=== PATIENT | female | born 1960 | race Caucasian/White ===

== ENCOUNTER 2022-05-26 14:58 | Outpatient (CLI) | payer OTHER, SELFPAY ==
--- NOTE | 2022-05-26 15:20 | CRLHL7_ITS ---
For Patients: As a result of the Cures Act, medical imaging exams and procedure reports are released immediately into your electronic medical record. You may view this report before your referring provider. If you have questions, please contact your health care provider. BILATERAL DIGITAL SCREENING MAMMOGRAM WITH TOMOSYNTHESIS AND COMPUTER-AIDED DETECTION CLINICAL HISTORY: Routine screening exam. COMPARISON: 05/23/2021, 05/22/2020, 05/19/2019, 05/18/2018. TECHNIQUE: Digital mammogram in CC and MLO projections including computer-aided detection (CAD). Tomosynthesis utilized. BREAST COMPOSITION: The breasts are heterogeneously dense, which may obscure small masses. FINDINGS: RIGHT Breast: No suspicious findings. LEFT Breast: Focal nodular density within the medial LEFT breast, posterior depth, 6 cm from the nipple. IMPRESSION: LEFT breast asymmetry/mass. RECOMMENDATIONS: Additional mammographic views of the LEFT breast including 3D spot compression CC/MLO. LEFT breast ultrasound may also be required. The [facility] will contact the patient for follow-up. BI-RADS Category 0: Incomplete: Need additional Imaging Evaluation and/or Prior Mammograms for Comparison A lay language report of this examination will be provided to the patient. Dictated by Rohit Obregon MD @ 05/27/2022 10:10:13 AM jj/Dictated by: Rohit Obregon MD @ 05/27/2022 10:10:00 AM (Electronically Signed)
== END 2022-05-26 14:59 | disposition home or self-care (01) ==
LOC: MAMMO 14:59
PROVIDERS: PCP Family Medicine; Visit Provider Family Medicine
DX: Z12.31 Encounter for screening mammogram for malignant neoplasm of breast (principal); N63.20 Unspecified lump in the left breast, unspecified quadrant
CPT/HCPCS: 77063; 77067

== ENCOUNTER 2022-05-29 09:31 | Outpatient (CLI) | payer OTHER, SELFPAY ==
--- NOTE | 2022-05-29 09:45 | CRLHL7_ITS ---
For Patients: As a result of the Cures Act, medical imaging exams and procedure reports are released immediately into your electronic medical record. You may view this report before your referring provider. If you have questions, please contact your health care provider. DIGITAL DIAGNOSTIC LEFT MAMMMOGRAM USING TOMOSYNTHESIS AND COMPUTER-AIDED DETECTION LEFT BREAST ULTRASOUND CLINICAL HISTORY: LEFT breast mass/asymmetry. COMPARISON: 05/26/2022, 05/23/2021, 05/22/2020, 05/19/2019. TECHNIQUE: Digital LEFT mammogram in two projections. Tomosynthesis and CAD were utilized. Real-time ultrasound imaging of LEFT breast with imaging documentation. Scanning was performed by both the technologist and the radiologist. BREAST COMPOSITION: There are areas of scattered fibroglandular density. FINDINGS: 3D spot compression CC and 3D spot compression MLO mammogram submitted. Persistent nodular density within the upper outer quadrant LEFT breast 6 cm from the nipple. No architectural distortion or suspicious calcifications. Targeted LEFT breast ultrasound performed in the upper outer quadrant. In this location at posterior depth there is a benign intramammary lymph node with circumscribed hypoechoic morphology measuring 3 x 3 x 6 millimeters at 11 o`clock 6 cm from the nipple. IMPRESSION: Benign intramammary lymph node LEFT breast. No evidence of malignancy. RECOMMENDATIONS: Annual BILATERAL screening mammography. Results and recommendations discussed with the patient. BI-RADS Category 2: Benign A lay language report of this examination will be provided to the patient. Dictated by Rohit Obregon MD @ 05/29/2022 11:14:46 AM jj/Dictated by: Rohit Obregon MD @ 05/29/2022 11:14:00 AM (Electronically Signed)
--- NOTE | 2022-05-29 10:15 | CRLHL7_ITS ---
For Patients: As a result of the Cures Act, medical imaging exams and procedure reports are released immediately into your electronic medical record. You may view this report before your referring provider. If you have questions, please contact your health care provider. PLEASE SEE DIGITAL DIAGNOSTIC LEFT MAMMOGRAM PERFORMED SAME DAY CRL:chana zayas/Dictated by: Rohit Obregon MD @ 05/29/2022 11:15:00 AM (Electronically Signed)
== END 2022-05-29 09:32 | disposition home or self-care (01) ==
LOC: MAMMO 09:32
PROVIDERS: PCP Family Medicine; Visit Provider Family Medicine
DX: N63.20 Unspecified lump in the left breast, unspecified quadrant (principal); R92.8 Other abnormal and inconclusive findings on diagnostic imaging of breast
CPT/HCPCS: 76642; 77065; G0279

== ENCOUNTER 2023-04-16 07:41 | Outpatient (CLI) | payer OTHER, SELFPAY | END 2023-04-16 07:42 | disposition home or self-care (01) | LOC: NFLDREF 12:07 | PROVIDERS: PCP Family Medicine; Referring Provider Family Medicine; Visit Provider Family Medicine | DX: D72.819 Decreased white blood cell count, unspecified (principal); E78.5 Hyperlipidemia, unspecified; I10 Essential (primary) hypertension; R73.9 Hyperglycemia, unspecified | CPT/HCPCS: 80053; 80061 ==

== ENCOUNTER 2023-06-10 09:54 | Outpatient (CLI) | payer OTHER, SELFPAY ==
--- NOTE | 2023-06-10 10:15 | CRLHL7_ITS ---
For Patients: As a result of the Century Cures Act, medical imaging exams and procedure reports are released immediately into your electronic medical record. You may view this report before your referring provider. If you have questions, please contact your health care provider. BILATERAL SCREENING MAMMOGRAM WITH COMPUTER-AIDED DETECTION AND TOMOSYNTHESIS TECHNIQUE: CC and MLO views were obtained. These mammographic images have been obtained using full-field digital technique. These mammographic images were interpreted with the benefit of computer-aided detection. Breast Tomosynthesis was used in this interpretation. COMPARISON FILM: 05/26/22, 05/23/21, 05/22/20. FINDINGS: The breasts are heterogeneously dense, which may obscure small masses IMPRESSION: There is no radiographic evidence for malignancy. ASSESSMENT: BI-RADS Category 2: Benign RECOMMENDATION: Routine screening mammogram in 1 year. A lay language report of this examination will be provided to the patient. Rohit Obregon M.D. Diagnostic Radiologist [email or web address] DANO/Dictated by: Rohit Obregon MD @ 06/11/2023 9:00:00 AM (Electronically Signed)
== END 2023-06-10 09:55 | disposition home or self-care (01) ==
LOC: MAMMO 09:55
PROVIDERS: PCP Family Medicine; Visit Provider Family Medicine
DX: Z12.31 Encounter for screening mammogram for malignant neoplasm of breast (principal); R92.2 Inconclusive mammogram
CPT/HCPCS: 77063; 77067

== ENCOUNTER 2024-05-05 07:35 | Outpatient (CLI) | payer OTHER, SELFPAY | END 2024-05-05 07:36 | disposition home or self-care (01) | LOC: NFLDREF 14:35 | PROVIDERS: PCP Family Medicine; Referring Provider Family Medicine; Visit Provider Family Medicine | DX: I10 Essential (primary) hypertension (principal); E78.5 Hyperlipidemia, unspecified; R73.01 Impaired fasting glucose | CPT/HCPCS: 80053; 80061 ==

== ENCOUNTER 2024-05-16 09:42 | Outpatient (CLI) | payer OTHER, SELFPAY ==
--- OUTSIDE RECORDS SUMMARY | 2024-05-16 09:44 | XMS_ITS | Encounter Summary ---
Author Organization [facility] Address [address] [place] [address] Care Team Providers Care Molding Machine Operator Name Role Phone Needs Pcp, Assignment Primary Care Provider Encounter Details Date Type Department Care Team (Latest Contact Info) Description 10/23/1997 Orders Only Kenny Mccullough Social History Tobacco Use Types Packs/Day Years Used Date Smoking Tobacco: Never Assessed Sex and Gender Information Value Date Recorded Sex Assigned at Not on file Gender Identity Not on file Sexual Orientation Not on file documented as of this encounter Plan of Treatment Not on file documented as of this encounter Visit Diagnoses Not on filedocumented in this encounter Care Teams Molding Machine Operator Relationship Specialty Start Date End Date Needs Pcp, Ernie [place], [place] [id number] PCP - General 07/18/22 documented as of this encounter
--- OUTSIDE RECORDS SUMMARY | 2024-05-16 09:44 | XMS_ITS | Encounter Summary ---
Author Organization [facility] Address [address] [place] [address] Care Team Providers Care Establishment Guide Name Role Phone Needs Pcp, Assignment Primary Care Provider Encounter Details Date Type Department Care Team (Latest Contact Info) Description 11/22/1998 Orders Only Anai Marrero MD Social History Tobacco Use Types Packs/Day Years Used Date Smoking Tobacco: Never Assessed Sex and Gender Information Value Date Recorded Sex Assigned at Not on file Gender Identity Not on file Sexual Orientation Not on file documented as of this encounter Plan of Treatment Not on file documented as of this encounter Visit Diagnoses Not on filedocumented in this encounter Care Teams Establishment Guide Relationship Specialty Start Date End Date Needs Pcp, [place] [address] PCP - General 07/18/22 documented as of this encounter
--- OUTSIDE RECORDS SUMMARY | 2024-05-16 09:44 | XMS_ITS | Clinical Summary ---
Author Organization [facility] Address [address], [place] [address] Care Team Providers Care Contracting Specialist Name Role Phone Needs Pcp, Assignment Primary Care Provider Source Comments You are receiving this document as you are listed as the primary care provider,follow-up provider, or the patient has been referred to you for consultation.This is in compliance with the Medicare and[facility] Hospital[facility] EHR Incentive Program,which states Providers who transition their patient to another setting of careor provider of care or refers their patient to another provider of care shouldprovide summary care record for each transition of care or referral. [facility] Allerg[facility] Active Allergy Reactions Criticality Noted Date Comments Other Hives High 11/26/2018 Chlorpheniramine-phenylpropan Medications Medication Sig Dispensed Refills Start Date End Date Status VITAMIN E 400UNIT ORAL CAPS 400 I.U. DAILY 0 01/29/2005 Active loratadine (AKA CLARITIN) 10 MG tablet Take 10 mg by mouth daily. Active ALBUterol sulfate hfa (PROAIR HFA) 108 (90 BASE) MCG/ACT inhaler Inhale 2 Puffs by mouth every 4 hours as needed for Wheezing. 8.5 g 3 03/05/2015 Active fluticasone (FLONASE) 50 MCG/ACT nasal solution Apply or instill 2 Sprays into both nostrils daily. 16 g 6 03/05/2015 Active lisinopril-hydrochlor othiazide (AKA PRINZIDE;ZESTORETIC) 10-12.5 MG tablet Take 1 Tab by mouth daily. 90 Tab 3 03/05/2015 Active acyclovir (ZOVIRAX) 400 MG tablet TAKE ONE TABLET BY MOUTH ONE TIME DAILY 93 Tab 0 09/24/2016 Active Active Problems Problem Noted Date Diagnosed Date Screening for malignant neoplasm of cervix 03/09 Overview: 2008 NILM 2011 NILM 2014 ASCUS, HPV negative Plan: Co-test 02/2018 [facility] HTN (hypertension) 10/11/2008 Dyslipidemia 02/29/2008 Rhinitis 02/29/2008 Resolved Problems Problem Noted Date Diagnosed Date Resolved Date Elevated blood pressure 09/18/200809/25 Impaired fasting glucose 02/29/2008 Immunizations Name Administration Dates Next Due Flu Vac (3+ yrs) 08/24/2010, 8,09/02/2006,2004 Influenza Vaccine (3+years) ([facility]) 09/06/2007 Influenza, Unspecified Formulation 08/09/2015 Td 02/16/1997 Tdap 03/03/2007 Varicella 07/11/1997(Deferred: Immune by Akash lara) Family History Medical History Relation Name Comments Cancer, Colon Mother Cancer, Other Mother LIVER Hypertension Mother brothers Other Mother COLON POLYPS Hyperlipidemia Brother 3 Cerebrovascular Disease Maternal Grandmother Cerebrovascular Disease Paternal Grandfather Coronary Artery Disease Paternal Grandfather Diabetes, Type II Paternal Grandfather Cerebrovascular Disease Paternal Grandmother Thyroid Disorder Sister 3 BOTH SISTER S AND AUNT Migraines Sister 4 brothers Relation Name Status Comments Father (Age 51) LUNG PROBL EMS/PNEUMONIA/POSSIBLE WORK EXPOSURES Mother (Age 72) LIVER CANC ER Brother 1 Alive Brother 2 Alive Brother 3 Maternal Grandmother Paternal Grandfather Paternal Grandmother Sister 1 Alive Sister 2 Alive Sister 3 Sister 4 Son 1 Alive Son 2 Alive Son 3 Alive Social History Tobacco Use Types Packs/Day Years Used Date Smoking Tobacco: Never Smokeless Tobacco: Never Alcohol Use Standard Drinks/Week Comments No 0 (1 standard drink = 0.6 oz pur e alcohol) RARE Sex and Gender Information Value Date Recorded Sex Assigned at Not on file Gender Identity Not on file Sexual Orientation Not on file Last Filed Vital Signs Vital Sign Reading Time Taken Comments Blood Pressure 158/99 11/26/2018 10:40 AM TOBACCO SAMPLER Pulse 88 11/26/2018 10:40 AM TOBACCO SAMPLER Temperature 37.5 ??C (99.5 ??F) 11/26/2018 9:53 AM CS T Respiratory Rate 16 03/13/2014 8:04 AM CDT Oxygen Saturation 98% 11/26/2018 9:53 AM TOBACCO SAMPLER Inhaled Oxygen Concentration - - Weight 87.4 kg (192 lb 9.6 oz) 11/26/2018 9:53 A M TOBACCO SAMPLER Height 170.2 cm (5' 7) 11/26/2018 9:53 AM TOBACCO SAMPLER Body Mass Index 30.17 11/26/2018 9:53 AM TOBACCO SAMPLER Plan of Treatment Health Maintenance Due Date Last Done Comments Hep C Screening (Preventive Services) 1960 HIV Screening (Preventive Services) 1976 Zoster/Shingles (1 of 2) 2010 Cervical Cancer Screening Due 03/06/2015 03/05/2015, 03/05/2012, 03/05/2012, Additional history exists Adult Preventive Visit 03/05/2016 , 03/13/2014, 03/15/2013, Additional history exists Colonoscopy 05/06/2016 05/06/2011, 04/25, 05/06/2011 (Historical Completion) Cholesterol 03/05/2020 03/05/2015, 02/23, 03/15/2013, Additional history exists Mammogram 09/16/2020 09/16/2019 (Comp leted), 05/07/2015, 05/02/2014, Additional history exists COVID-19 Vaccine (2022- season) 2023 02/08/2021, 01/11/2021 Influenza (#1) 2024 07/16/2020, 07/26, 08/24/2010, Additional history exists DTaP/Tdap/Td (3 - Tdap) 03/18/2027 03/18/20 17, 03/03/2007, 02/16/1997 HepA Aged Out No longer eligi ble based on patient's age to complete this topic HepB Aged Out No longer eligi ble based on patient's age to complete this topic Hib Aged Out No longer eligi ble based on patient's age to complete this topic IPV (Polio) Aged Out No longer eligi ble based on patient's age to complete this topic MCV4 Aged Out No longer eligi ble based on patient's age to complete this topic Pneumococcal Aged Out No longer eligi ble based on patient's age to complete this topic Procedures Procedure Name Priority Date/Time Associated Diagnosis Comments MM MAMMOGRAM SCREENING BILAT W CAD Routine 05/07/2015 8:52 AM CDT PAP TEST, ROUTINE Routine 03/05/2015 8:4 2 AM CDT Screening For Malignant Neoplasm Of The Cervix LIPID PANEL & DIRECT LDL (IF NEEDED) Routine 03/05/2015 8:28 AM CDT Routine adult health maintenance COLONOSCOPY S 05/06/2011 12:00 AM CDT from Last 3 Months or Most Recently Relevant to Health Maintenance Results * MAMMOGRAM SCREENING BILATERAL (05/07/2015 8:52 AM CDT) Anatomical Region Laterality Modality Breast Bilateral Mammography 05/07/2015 8:52 AM CDT Narrative 05/07/2015 3:21 PM CDT MAMMOGRAM SCREENING W/CAD BILAT 05/07/2015 8:52 AM INDICATION: Screening. COMPARISON: Priors back to 04/27/2013 FINDINGS: Bilateral full-field digital screening mammograms performed. The breast tissue is heterogeneously dense, which may lower the sensitivity of mammography. Images evaluated with the assistance of CAD. ??No suspicious finding of the right breast. There is a 7 mm partially visualized asymmetry of the central, posterior left breast seen on the cc view for which further evaluation is suggested with spot compression views and ultrasound if indicated. ACR BI-RADS Category 0: Incomplete; Needs Additional Imaging Evaluation and/or Prior Mammograms for Comparison. We will contact this patient directly to arrange for followup. Procedure Note Shi Palomo MD - 05/07/2015 MAMMOGRAM SCREENING W/CAD BILAT 05/07/2015 8:52 AM INDICATION: Screening. COMPARISON: Priors back to 04/27/2013 FINDINGS: Bilateral full-field digital screening mammograms performed. The breast tissue is heterogeneously dense, which may lower the sensitivity of mammography. Images evaluated with the assistance of CAD. No suspicious finding of the right breast. There is a 7 mm partially visualizedasymmetry of the central, posterior left breast seen on the cc view for which further evaluation is suggested with spot compression views and ultrasound if indicated. ACR BI-RADS Category 0: Incomplete; Needs Additional Imaging Evaluation and/or Prior Mammograms for Comparison. We will contact this patient directly to arrange for followup. Vernell Montejo MD RAD JIM * PAP TEST, ROUTINE (03/05/2015 8:42 AM CDT) Cytology, Pap (NOTE) Geologic Technician Cytology Report Patient Name: ELISA SORIA Taken: 03/05/2015 Received: 03/05/2015 Reported: 03/08/2015 Physician(s): VERNELL MONTEJO ([id number]) ?Source of Specimen Pap Test, Routine Cervical/Endocer vical: ?Specimen Adequacy ?Satisfactory for evaluation. ??Atrophic specimen; endocervical component cannot be determined. ? Final Cytologic Interpretation/R esult EPITHELIAL CELL ABNORMALITIES Atypical squamous cells, undetermined significance (ASC-US). ?? Electronicall y Signed Out By ? Nayely Brito MD ??([id number] ) Carol Leung, CT (ASCP) ? Pap Smear History Date of Last Menstrual Period: 11/09/2007 ?? Microscopic Description Microscopic examination is performed. [facility] Department of Pathology [address] [place] [address] ??[id number] [facility] 03/05/2015 8:42 AM CDT 03/05/2015 3:37 PM CDT Vernell Montejo MD LAB_1 [facility] [phone] * (ABNORMAL) LIPID PANEL AND DIRECT LDL(IF NEEDED) (03/05/2015 8:28 AM CDT) Hours Fasting 14 hours [facility] Cholesterol 200(H) 0 - 199 mg/dl [facility] Triglyceride 190(H) 0 - 149 mg/dl [facility] HDL 26(L) >40 mg/dl [facility] LDL, Calc. 136(H) 0 - 129 mg/dl [facility] Non HDL Chol, Calc 174 mg/dl [facility] 03/05/2015 8:28 AM CDT 03/05/2015 8:30 AM CDT Narrative [facility] - 03/05/2015 1:21 PM CDT Performed at [facility], [address] [place] [address] ??[id number] Vernell Montejo MD LAB_1 [facility] [phone] * COLONOSCOPY S (05/06/2011 12:00 AM CDT) 05/06/2011 Narrative [facility], Provider - 05/06/2011 12:00 AM CDT Niharika Castillo MD DUMMY/OTHER/AR from Last 3 Months or Most Recently Relevant to Health Maintenance Care Teams Contracting Specialist Relationship Specialty Start Date End Date Needs Pcp, [place] [address] PCP - General 07/18/22
--- OUTSIDE RECORDS SUMMARY | 2024-05-16 09:44 | XMS_ITS | Encounter Summary ---
Author Organization [employer] [facility] Address [address] [place] [address] Care Team Providers Care Paper Tube Machine Operator Name Role Phone Needs Pcp, Assignment Primary Care Provider Encounter Details Date Type Department Care Team (Late st Contact Info) Description 09/24/2016 Refill Order [facility] [address] [place], [place] [phone] [place] [address] [place] [address] Social History Tobacco Use Types Packs/Day Years [...] documented as of this encounter Visit Diagnoses Diagnosis Encounter for long-term (current) use of medications- Primary Encounter for long-term (current) use of other medications documented in this encounter Care Teams Paper Tube Machine Operator Relationship Specialty Start Date End Date Needs Pcp, Ernie ORTIZ [place], [place] [phone] PCP - General 07/18/22 documented as of this encounter
--- OUTSIDE RECORDS SUMMARY | 2024-05-16 09:44 | XMS_ITS | Encounter Summary ---
Author Organization [facility] Address [address] [place] [address] Care Team Providers Care Nurse Practical Name Role Phone Needs Pcp, Assignment Primary Care Provider Encounter Details Date Type Department Care Team (Latest Contact Info) Description 11/11/1997 Orders Only Larry Tate Social History Tobacco Use Types Packs/Day Years Used Date Smoking Tobacco: Never Assessed Sex and Gender Information Value Date Recorded Sex Assigned at Not on file Gender Identity Not on file Sexual Orientation Not on file documented as of this encounter Plan of Treatment Not on file documented as of this encounter Visit Diagnoses Not on filedocumented in this encounter Care Teams Nurse Practical Relationship Specialty Start Date End Date Needs Pcp, [place] [address] PCP - General 07/18/22 documented as of this encounter
--- OUTSIDE RECORDS SUMMARY | 2024-05-16 09:44 | XMS_ITS | Encounter Summary ---
Author Organization [facility] Address [address] [place] [address] Care Team Providers Care Post Exchange Manager Name Role Phone Needs Pcp, Assignment Primary Care Provider Encounter Details Date Type Department Care Team (Latest Contact Info) Description 05/28/1999 Orders Only Anai Marrero MD Social History [...] on filedocumented in this encounter Care Teams Post Exchange Manager Relationship Specialty Start Date End Date Needs Pcp, [place] [address] PCP - General 07/18/22 documented as of this encounter
--- OUTSIDE RECORDS SUMMARY | 2024-05-16 09:44 | XMS_ITS | Encounter Summary ---
Author Organization [facility] Address [address] [place] [address] Care Team Providers Care Philosophy Specialist Name Role Phone Needs Pcp, Assignment Primary Care Provider Encounter Details Date Type Department Care Team (Latest Contact Info) Description 07/10/1997 Orders Only Deric, David Whitmore MD [address] [place], [place] [phone] Social History Tobacco Use Types Packs/Day Years Used Date Smoking Tobacco: Never Assessed Sex and Gender Information Value Date Recorded Sex Assigned at Not on file Gender Identity Not on file Sexual Orientation Not on file documented as of this encounter Plan of Treatment Not on file documented as of this encounter Visit Diagnoses Not on filedocumented in this encounter Care Teams Philosophy Specialist Relationship Specialty Start Date End Date Needs Pcp, [place] [address] PCP - General 07/18/22 documented as of this encounter
--- OUTSIDE RECORDS SUMMARY | 2024-05-16 09:44 | XMS_ITS | Encounter Summary ---
Author Organization [facility] [employer] Address [address] [place] [address] Care Team Providers Care Earth Observations Chief Scientist Name Role Phone Needs Pcp, Assignment Primary Care Provider Encounter Details Date Type Department Care Team (Latest Contact Info) Description 06/26/1998 [place] [address] [place], [place] [phone] Social History Tobacco Use Types Packs/Day Years Used Date Smoking Tobacco: Never Assessed Sex and Gender Information Value Date Recorded Sex Assigned at Not on file Gender Identity Not on file Sexual Orientation Not on file documented as of this encounter Plan of Treatment Not on file documented as of this encounter Visit Diagnoses Not on filedocumented in this encounter Care Teams Earth Observations Chief Scientist Relationship Specialty Start Date End Date Needs Pcp, [place] [address] PCP - General 07/18/22 documented as of this encounter
--- OUTSIDE RECORDS SUMMARY | 2024-05-16 09:44 | XMS_ITS | Encounter Summary ---
Author Organization [facility] Address [address] [place] [address] Care Team Providers Care Client Services Vice President Name Role Phone Needs Pcp, Assignment Primary Care Provider Encounter Details Date Type Department Care Team (Latest Contact Info) Description 12/24/1996 Orders Only Neftali Olivo MD [address] [place], [place] [phone] Social History Tobacco Use Types Packs/Day Years Used Date Smoking Tobacco: Never Assessed Sex and Gender Information Value Date Recorded Sex Assigned at Not on file Gender Identity Not on file Sexual Orientation Not on file documented as of this encounter Plan of Treatment Not on file documented as of this encounter Visit Diagnoses Not on filedocumented in this encounter Care Teams Client Services Vice President Relationship Specialty Start Date End Date Needs Pcp, Ernie ORTIZ [place], [place] [address] PCP - General 07/18/22 documented as of this encounter
--- OUTSIDE RECORDS SUMMARY | 2024-05-16 09:44 | XMS_ITS | Encounter Summary ---
Author Organization [facility] Address [address] [place] [address] Care Team Providers Care Hydroelectric Plant Mechanical Engineer Name Role Phone Needs Pcp, Assignment Primary Care Provider Encounter Details Date Type Department Care Team (Latest Contact Info) Description 05/17/1996 Orders Only Javi Bagley MD [address] [place], [place] [phone] Social History Tobacco Use Types Packs/Day Years Used Date Smoking Tobacco: Never Assessed Sex and Gender Information Value Date Recorded Sex Assigned at Not on file Gender Identity Not on file Sexual Orientation Not on file documented as of this encounter Plan of Treatment Not on file documented as of this encounter Visit Diagnoses Not on filedocumented in this encounter Care Teams Hydroelectric Plant Mechanical Engineer Relationship Specialty Start Date End Date Needs Pcp, [place] [address] PCP - General 07/18/22 documented as of this encounter
--- OUTSIDE RECORDS SUMMARY | 2024-05-16 09:44 | XMS_ITS | Encounter Summary ---
Author Organization [facility] Address [address] [place] [address] Care Team Providers Care Oracle Soa Architect Name Role Phone Needs Pcp, Assignment Primary Care Provider Encounter Details Date Type Department Care Team (Latest Contact Info) Description 06/21/1996 Orders Only Javi Bagley MD [address] [place], [place] [phone] Social History Tobacco Use Types Packs/Day Years Used Date Smoking Tobacco: Never Assessed Sex and Gender Information Value Date Recorded Sex Assigned at Not on file Gender Identity Not on file Sexual Orientation Not on file documented as of this encounter Plan of Treatment Not on file documented as of this encounter Visit Diagnoses Not on filedocumented in this encounter Care Teams Oracle Soa Architect Relationship Specialty Start Date End Date Needs Pcp, [place] [address] PCP - General 07/18/22 documented as of this encounter
--- OUTSIDE RECORDS SUMMARY | 2024-05-16 09:44 | XMS_ITS | Encounter Summary ---
Author Organization [facility] Address [address] [place] [address] Care Team Providers Care Nursery Rn Name Role Phone Needs Pcp, Assignment Primary Care Provider Encounter Details Date Type Department Care Team (Latest Contact Info) Description 01/10/2000 Orders Only Anai Marrero MD Social History [...] on filedocumented in this encounter Care Teams Nursery Rn Relationship Specialty Start Date End Date Needs Pcp, [place] [address] PCP - General 07/18/22 documented as of this encounter
--- OUTSIDE RECORDS SUMMARY | 2024-05-16 09:45 | XMS_ITS | Encounter Summary ---
Author Organization [employer] Address [address] [place] [address] Care Team Providers Care Api Architect Name Role Phone Needs Pcp, Assignment Primary Care Provider Encounter Details Date Type Department Care Team (Latest Contact Info) Description 09/04/1995 Orders Only Javi Bagley MD [address] [place], [place] [phone] Social History Tobacco Use Types Packs/Day Years Used Date Smoking Tobacco: Never Assessed Sex and Gender Information Value Date Recorded Sex Assigned at Not on file Gender Identity Not on file Sexual Orientation Not on file documented as of this encounter Plan of Treatment Not on file documented as of this encounter Visit Diagnoses Not on filedocumented in this encounter Care Teams Api Architect Relationship Specialty Start Date End Date Needs Pcp, [place] [address] PCP - General 07/18/22 documented as of this encounter
--- OUTSIDE RECORDS SUMMARY | 2024-05-16 09:45 | XMS_ITS | Encounter Summary ---
Author Organization [facility] Address [address] [place] [address] Care Team Providers Care Artists' Model Name Role Phone Needs Pcp, Assignment Primary Care Provider Encounter Details Date Type Department Care Team (Latest Contact Info) Description 11/14/1994 Orders Only Javi Bagley MD [address] [place], [place] [phone] Social History Tobacco Use Types Packs/Day Years Used Date Smoking Tobacco: Never Assessed Sex and Gender Information Value Date Recorded Sex Assigned at Not on file Gender Identity Not on file Sexual Orientation Not on file documented as of this encounter Plan of Treatment Not on file documented as of this encounter Visit Diagnoses Not on filedocumented in this encounter Care Teams Artists' Model Relationship Specialty Start Date End Date Needs Pcp, [place] [address] PCP - General 07/18/22 documented as of this encounter
--- OUTSIDE RECORDS SUMMARY | 2024-05-16 09:45 | XMS_ITS | Encounter Summary ---
Author Organization [employer] Address [address] [place] [address] Care Team Providers Care Clarity Specialists Name Role Phone Needs Pcp, Assignment Primary Care Provider [phone] Encounter Details Date Type Department Care Team (Latest Contact Info) Description 11/07/1994 Orders Only Tyson Villafana Social History Tobacco Use Types Packs/Day Years Used Date Smoking Tobacco: Never Assessed Sex and Gender Information Value Date Recorded Sex Assigned at Not on file Gender Identity Not on file Sexual Orientation Not on file documented as of this encounter Plan of Treatment Not on file documented as of this encounter Visit Diagnoses Not on filedocumented in this encounter Care Teams Clarity Specialists Relationship Specialty Start Date End Date Needs Pcp, [place] [address] PCP - General 07/18/22 documented as of this encounter
--- OUTSIDE RECORDS SUMMARY | 2024-05-16 09:45 | XMS_ITS | Clinical Summary ---
Author Organization [employer] Address [place], [place] [address] Care Team Providers Care Plumber'S Helper Name Role Phone Pcp, No Primary Care Provider Unavailabl e Allergies Active Allergy Reactions Criticality Noted Date Comments Chlorpheniramine-Phenylpropan Hives 2016 Eyes itch Medications Medication Sig Dispensed Refills Start Date End Date Status lisinopril (PRINIVIL; ZESTRIL) 10 mg tablet Take 1 tablet by mouth once daily. 0 07/08/2017 Active Social History Tobacco Use Types Packs/Day Years Used Date Smoking Tobacco: Never Smokeless Tobacco: Never Sex and Gender Information Value Date Recorded Sex Assigned at Not on file Gender Identity Not on file Sexual Orientation Not on file Obstetrics History Last Filed Vital Signs Vital Sign Reading Time Taken Comments Blood Pressure 130/79 07/08/2017 3:24 PM CDT Pulse 94 07/08/2017 3:24 PM CDT Temperature - - Respiratory Rate - - Oxygen Saturation 98% 07/08/2017 3:24 PM CDT Inhaled Oxygen Concentration - - Weight - - Height - - Body Mass Index - - Plan of Treatment Health Maintenance Due Date Last Done Comments Tdap 1971 Depression screening for age 12+ 1972 HIV for age 15-65 1975 BMI (ht and wt on same day) for age 18+ 1978 Hepatitis C screening for age 18-79 1978 Tetanus booster 1980 Colonoscopy through age 75 2005 Lipids for age 45-75 2005 Mammogram for age 45-75 2005 Zoster (shingles) series for age 50+ (1 of 2) 2010 COVID-19 vaccine series (2022-24 season) 2023 Influenza for age 50-64 06/26/2024 Pap test for age 21-65 04/23/2026 , 04/23/2023, 03/12/2018, Additional history exists Pneumococcal series for age 6-64 Aged Out No longer eligible based on patient's age to complete this topic Procedures Procedure Name Priority Date/Time Associated Diagnosis Comments HPV THIN PREP Routine 04/23/2023 7:55 AM CDT from Last 3 Months or Most Recently Relevant to Health Maintenance Results * HPV HIGH RISK (04/23/2023 7:55 AM CDT) TYPE 16 Negative Negative 04/30/2023 5:17 PM CDT [facility] TYPE 18 Negative Negative 04/30/2023 5:17 PM CDT [facility] OTHER HIGH RISK TYPES Negative Negative 04/30/2023 5:17 PM CDT [facility] Other (Cervical/Vagina l) 04/23/2023 7:55 AM CDT 04/27/2023 12:00 PM CDT Narrative [facility] - 04/30/2023 5:17 PM CDT HPV types 16, 18, 31, 33, 35, 39, 45, 51, 52, 56, 58, 59, 66 and 68 DNA were undetectable or below the pre-set threshold. Methodology: Cornelia Jaiden 4800 HPV Test Sola Allen MD MICROBIOLOGY [facility] [address] [place] [address], [place] from Last 3 Months or Most Recently Relevant to Health Maintenance Care Teams Plumber'S Helper Relationship Specialty Start Date End Date Pcp, No . PCP - General 06/30/17
--- OUTSIDE RECORDS SUMMARY | 2024-05-16 09:45 | XMS_ITS | Encounter Summary ---
Author Organization [employer] Address [address] [place] [address] Care Team Providers Care Inspector Repairer Sandstone Name Role Phone Needs Pcp, Assignment Primary Care Provider Encounter Details Date Type Department Care Team (Latest Contact Info) Description 04/30/1995 Orders Only Javi Bagley MD [address] [place], [place] [phone] Social History Tobacco Use Types Packs/Day Years Used Date Smoking Tobacco: Never Assessed Sex and Gender Information Value Date Recorded Sex Assigned at Not on file Gender Identity Not on file Sexual Orientation Not on file documented as of this encounter Plan of Treatment Not on file documented as of this encounter Visit Diagnoses Not on filedocumented in this encounter Care Teams Inspector Repairer Sandstone Relationship Specialty Start Date End Date Needs Pcp, [place] [address] PCP - General 07/18/22 documented as of this encounter
--- OUTSIDE RECORDS SUMMARY | 2024-05-16 09:45 | XMS_ITS | Encounter Summary ---
Author Organization [employer] Address [address] [place] [address] Care Team Providers Care Drapery Cutter Machine Name Role Phone Needs Pcp, Assignment Primary Care Provider [phone] Encounter Details Date Type Department Care Team (Latest Contact Info) Description 01/08/1995 Orders Only Javi Bagley MD [address] [place], [place] [phone] Social History Tobacco Use Types Packs/Day Years Used Date Smoking Tobacco: Never Assessed Sex and Gender Information Value Date Recorded Sex Assigned at Not on file Gender Identity Not on file Sexual Orientation Not on file documented as of this encounter Plan of Treatment Not on file documented as of this encounter Visit Diagnoses Not on filedocumented in this encounter Care Teams Drapery Cutter Machine Relationship Specialty Start Date End Date Needs Pcp, [place] [address] PCP - General 07/18/22 documented as of this encounter
--- OUTSIDE RECORDS SUMMARY | 2024-05-16 09:45 | XMS_ITS | Encounter Summary ---
Author Organization [employer] Address [address] [place] [address] Care Team Providers Care Electronic Development Technician Name Role Phone Needs Pcp, Assignment Primary Care Provider Encounter Details Date Type Department Care Team (Latest Contact Info) Description 05/28/1995 Orders Only Javi Bagley MD [address] [place], [place] [phone] Social History Tobacco Use Types Packs/Day Years Used Date Smoking Tobacco: Never Assessed Sex and Gender Information Value Date Recorded Sex Assigned at Not on file Gender Identity Not on file Sexual Orientation Not on file documented as of this encounter Plan of Treatment Not on file documented as of this encounter Visit Diagnoses Not on filedocumented in this encounter Care Teams Electronic Development Technician Relationship Specialty Start Date End Date Needs Pcp, [place] [address] PCP - General 07/18/22 documented as of this encounter
--- OUTSIDE RECORDS SUMMARY | 2024-05-16 09:45 | XMS_ITS | Encounter Summary ---
Author Organization [facility] Address [address] [place] [address] Care Team Providers Care Knowledge Management Advisor Name Role Phone Needs Pcp, Assignment Primary Care Provider Encounter Details Date Type Department Care Team (Latest Contact Info) Description 01/27/1996 Orders Only Janett Guzman MD [address] [facility] [address] [place], [place] [address] Social History Tobacco Use Types Packs/Day Years Used Date Smoking Tobacco: Never Assessed Sex and Gender Information Value Date Recorded Sex Assigned at Not on file Gender Identity Not on file Sexual Orientation Not on file documented as of this encounter Plan of Treatment Not on file documented as of this encounter Visit Diagnoses Not on filedocumented in this encounter Care Teams Knowledge Management Advisor Relationship Specialty Start Date End Date Needs Pcp, Assignment [facility] [place] [place] [address] PCP - General 07/18/22 documented as of this encounter
--- OUTSIDE RECORDS SUMMARY | 2024-05-16 09:45 | XMS_ITS | Encounter Summary ---
Author Organization [employer] Address [address] [place] [address] Care Team Providers Care Air Saw Operator Name Role Phone Needs Pcp, Assignment Primary Care Provider Encounter Details Date Type Department Care Team (Latest Contact Info) Description 12/03/1994 Orders Only Javi Bagley MD [address] [place], [place] [phone] Social History Tobacco Use Types Packs/Day Years Used Date Smoking Tobacco: Never Assessed Sex and Gender Information Value Date Recorded Sex Assigned at Not on file Gender Identity Not on file Sexual Orientation Not on file documented as of this encounter Plan of Treatment Not on file documented as of this encounter Visit Diagnoses Not on filedocumented in this encounter Care Teams Air Saw Operator Relationship Specialty Start Date End Date Needs Pcp, [place] [address] PCP - General 07/18/22 documented as of this encounter
--- OUTSIDE RECORDS SUMMARY | 2024-05-16 09:45 | XMS_ITS | Encounter Summary ---
Author Organization [employer] [facility] Address [address] [place] [address] Care Team Providers Care Ship Boss Name Role Phone Needs Pcp, Assignment Primary Care Provider [phone] Encounter Details Date Type Department Care Team (Latest Contact Info) Description 01/14/1996 Orders Only Larry West MD [address] [place], [place] [address] Social History Tobacco Use Types Packs/Day Years Used Date Smoking Tobacco: Never Assessed Sex and Gender Information Value Date Recorded Sex Assigned at Not on file Gender Identity Not on file Sexual Orientation Not on file documented as of this encounter Plan of Treatment Not on file documented as of this encounter Visit Diagnoses Not on filedocumented in this encounter Care Teams Ship Boss Relationship Specialty Start Date End Date Needs Pcp, Assignment ANGEL [place], [place] [address] PCP - General 07/18/22 documented as of this encounter
--- OUTSIDE RECORDS SUMMARY | 2024-05-16 09:45 | XMS_ITS | Encounter Summary ---
Author Organization [employer] Address [address] [place] [address] Care Team Providers Care Crown Buffer Name Role Phone Needs Pcp, Assignment Primary Care Provider Encounter Details Date Type Department Care Team (Latest Contact Info) Description 12/15/1994 Orders Only Nette Medeiros Social History Tobacco Use Types Packs/Day Years Used Date Smoking Tobacco: Never Assessed Sex and Gender Information Value Date Recorded Sex Assigned at Not on file Gender Identity Not on file Sexual Orientation Not on file documented as of this encounter Plan of Treatment Not on file documented as of this encounter Visit Diagnoses Not on filedocumented in this encounter Care Teams Crown Buffer Relationship Specialty Start Date End Date Needs Pcp, [place] [address] PCP - General 07/18/22 documented as of this encounter
--- NOTE | 2024-05-16 10:00 | CRLHL7_ITS ---
For Patients: As a result of the Century Cures Act, medical imaging exams and procedure reports are released immediately into your electronic medical record. You may view this report before your referring provider. If you have questions, please contact your health care provider. Indication: Follow-up thoracic aneurysm Technique: Noncontrast CT chest Please note that all CT scans at this facility use dose modulation, iterative reconstruction, and/or weight-based dosing when appropriate to reduce radiation dose to as low as reasonably achievable. Comparison: 04/23/2021 Findings: Fatty liver noted. Calcified stones in the gallbladder. Subcentimeter mediastinal lymph nodes are similar. No pleural or pericardial effusion. Mild rightward curvature thoracic spine no vertebral body compression fracture. Stable nodule in the right middle lobe measures 3.4 millimeters. No consolidation, edema or pneumothorax. Mild biapical pleural-parenchymal scarring. Ascending aorta measures 3.8 cm. Impression: Ascending thoracic aorta measures 3.8 cm. Stable 3.4 millimeter right middle lobe pulmonary nodule. Hepatic steatosis and cholelithiasis. Please note that all CT scans at this facility use dose modulation, iterative reconstruction, and/or weight-based dosing when appropriate to reduce radiation dose to as low as reasonably achievable. Dictated by Rohit Obregon MD @ 05/16/2024 12:12:38 PM (Electronically Signed)
== END 2024-05-16 09:43 | disposition home or self-care (01) ==
LOC: CT 09:43
PROVIDERS: PCP Family Medicine; Visit Provider Family Medicine
DX: I77.89 Other specified disorders of arteries and arterioles (principal); R91.1 Solitary pulmonary nodule; K76.0 Fatty (change of) liver, not elsewhere classified; K80.20 Calculus of gallbladder without cholecystitis without obstruction
CPT/HCPCS: 71250

== ENCOUNTER 2025-04-17 14:15 | Outpatient (CLI) | payer OTHER, SELFPAY ==
--- NOTE | 2025-04-17 14:40 | CRLHL7_ITS ---
For Patients: As a result of the Century Cures Act, medical imaging exams and procedure reports are released immediately into your electronic medical record. You may view this report before your referring provider. If you have questions, please contact your health care provider. INDICATION: BILATERAL SCREENING MAMMOGRAM, ASYMPTOMATIC 64 Y/O FEMALE COMPARISON: 06/10/2023, 05/26/2022, 05/23/2021 TECHNIQUE: Digital mammogram in CC and MLO projections including computer-aided detection (CAD) and tomosynthesis. BREAST COMPOSITION: The breasts are heterogeneously dense, which may obscure small masses. FINDINGS: No suspicious findings. ASSESSMENT: BI-RADS 2 Benign RECOMMENDATION: Annual screening mammogram. A lay language report of this examination will be provided to the patient. Dictated by: Rohit Obregon MD @ 04/18/2025 12:07:28 (Electronically Signed)
== END 2025-04-17 14:16 | disposition home or self-care (01) ==
LOC: MAMMO 14:15
PROVIDERS: PCP Family Medicine; Visit Provider Family Medicine
DX: Z12.31 Encounter for screening mammogram for malignant neoplasm of breast (principal); R92.333 Mammographic heterogeneous density, bilateral breasts
CPT/HCPCS: 77063; 77067

== ENCOUNTER 2025-05-10 07:28 | Outpatient (CLI) | payer OTHER, SELFPAY | END 2025-05-10 07:29 | disposition home or self-care (01) | LOC: NFLDREF 05-11 18:05 | PROVIDERS: PCP Family Medicine; Referring Provider Family Medicine; Visit Provider Family Medicine | DX: R73.03 Prediabetes (principal); I10 Essential (primary) hypertension; E78.5 Hyperlipidemia, unspecified | CPT/HCPCS: 80053; 80061 ==

== ENCOUNTER 2025-06-19 02:35 | Emergency (ER) | payer OTHER, SELFPAY ==
--- OUTSIDE RECORDS SUMMARY | 2025-06-19 02:37 | XMS_ITS | Encounter Summary ---
Author Organization [employer] Address [address] [place] [address] Care Team Providers Care Animal Treatment Investigator Name Role Phone Needs Pcp, Assignment Primary Care Provider Encounter Details Date Type Department Care Team (Latest Contact Info) Description 06/21/1996 Orders Only Javi Bagley MD [address] [place], [place] [phone] Social History Tobacco Use Types Packs/Day Years Used Date Smoking Tobacco: Never Assessed Comments Unknown Sex and Gender Information Value Date Recorded Sex Assigned at Not on file Legal Sex Female 4:39 AM CDT Gender Identity Not on file Sexual Orientation Not on file documented as of this encounter Plan of Treatment Not on file documented as of this encounter Visit Diagnoses Not on filedocumented in this encounter Care Teams Animal Treatment Investigator Relationship Specialty Start Date End Date Needs Pcp, Ernie ORTIZ [place], [place] [address] PCP - General 07/18/22 documented as of this encounter
--- OUTSIDE RECORDS SUMMARY | 2025-06-19 02:37 | XMS_ITS | Encounter Summary ---
Author Organization [employer] Address [address] [place] [address] Care Team Providers Care Patient Access Specialist Name Role Phone Needs Pcp, Assignment Primary Care Provider Encounter Details Date Type Department Care Team (Latest Contact Info) Description 09/04/1995 Orders Only Javi Bagley MD [address] [place], [place] [phone] Social History Tobacco Use Types Packs/Day Years [...] on filedocumented in this encounter Care Teams Patient Access Specialist Relationship Specialty Start Date End Date Needs Pcp, Ernie ORTIZ [place], [place] [address] PCP - General 07/18/22 documented as of this encounter
--- OUTSIDE RECORDS SUMMARY | 2025-06-19 02:37 | XMS_ITS | Encounter Summary ---
Author Organization [employer] Address [address] [place] [address] Care Team Providers Care Operations Label Clerk Name Role Phone Needs Pcp, Assignment Primary Care Provider Encounter Details Date Type Department Care Team (Latest Contact Info) Description 07/10/1997 Orders Only Cure, David Whitmore MD Social History Tobacco Use Types Packs/Day [...] on filedocumented in this encounter Care Teams Operations Label Clerk Relationship Specialty Start Date End Date Needs Pcp, Assignment [place], [place] [address] PCP - General 07/18/22 documented as of this encounter
--- OUTSIDE RECORDS SUMMARY | 2025-06-19 02:37 | XMS_ITS | Encounter Summary ---
Author Organization [employer] Address [address] [place] [address] Care Team Providers Care Inventory Control Specialist Name Role Phone Needs Pcp, Assignment Primary Care Provider Encounter Details Date Type Department Care Team (Latest Contact Info) Description 05/17/1996 Orders Only Javi Bagley MD [address] [place], [place] [phone] Social History Tobacco Use Types Packs/Day Years [...] on filedocumented in this encounter Care Teams Inventory Control Specialist Relationship Specialty Start Date End Date Needs Pcp, Ernie ORTIZ [place], [place] [address] PCP - General 07/18/22 documented as of this encounter
--- OUTSIDE RECORDS SUMMARY | 2025-06-19 02:37 | XMS_ITS | Clinical Summary ---
Author Organization [facility] Address [address], [place] [address] Care Team Providers Care Pre Planning Advisor Name Role Phone Needs Pcp, Assignment Primary Care Provider Source Comments You are receiving this document as you are listed as the primary care provider,follow-up provider, or the patient has been referred to you for consultation.This is in compliance with the Medicare and[facility] EHR Incentive Program,which states Providers who transition their patient to another setting of careor provider of care or refers their patient to another provider of care shouldprovide summary care record for each transition of care or referral. [facility] Allergies Active Allergy Reactions Criticality Noted Date Comments Other Hives High 11/26/2018 Chlorpheniramine-phenylpropan Medications VITAMIN E 400UNIT ORAL CAPS 400 I.U. [...] nostrils daily. 16 g 6 03/05/2015 Active lisinopril-hydr ochlorothiazide (AKA PRINZIDE;ZESTOR ETIC) 10-12.5 MG tablet Take 1 Tab by mouth daily. 90 Tab 3 03/05/2015 Active acyclovir (ZOVIRAX) 400 MG tablet TAKE ONE TABLET BY MOUTH ONE TIME DAILY 93 Tab 0 09/24/2016 Active Active Problems Problem Noted Date Diagnosed Date Screening for malignant neoplasm of cervix 03/09 Overview (07/26/2015): 2008 NILM 2011 NILM 2014 ASCUS, HPV negative Plan: Co-test 02/2018 Epic HTN (hypertension) 10/11/2008 Dyslipidemia 02/29/2008 Rhinitis 02/29/2008 Resolved Problems Problem Noted Date Diagnosed Date Resolved Date Elevated blood pressure 09/18/200809/25 Impaired fasting glucose 02/29/2008 Immunizations Immunization Administration Dates Next Due Flu Vac (3+ yrs) 08/24/2010, 8,09/02/2006,2004 Influenza Vaccine (3+years) (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 Not on file Not on file Last Filed Vital Signs Vital Sign Reading Time Taken Comments Blood Pressure 158/99 11/26/2018 10:40 AM VIRTUALIZATION ARCHITECT Pulse 88 11/26/2018 10:40 AM VIRTUALIZATION ARCHITECT Temperature 37.5 C (99.5 F) 11/26/2018 9:53 AM VIRTUALIZATION ARCHITECT Respiratory Rate 16 03/13/2014 8:04 AM CDT Oxygen Saturation 98% 11/26/2018 9:53 AM VIRTUALIZATION ARCHITECT Inhaled Oxygen Concentration - - Weight 87.4 kg (192 lb 9.6 oz) 11/26/2018 9:53 A M VIRTUALIZATION ARCHITECT Height 170.2 cm (5' 7) 11/26/2018 9:53 AM VIRTUALIZATION ARCHITECT Body Mass Index 30.17 11/26/2018 9:53 AM VIRTUALIZATION ARCHITECT Plan of Treatment Health Maintenance Due Date Last Done Comments Hep C Screening (Preventive Services) 1960 HIV Screening (Preventive Services) 1976 Pneumococcal Vaccine 50+ Yrs (1 of 1 - PCV) 2010 Zoster/Shingles Vaccine (1 of 2) 2010 Cervical Cancer Screening Due 03/06/2015 03/05/2015, 03/05/2012, 03/05/2012, Additional history exists Adult Preventive Visit 03/05/2016 5, 03/13/2014, 03/15/2013, Additional history exists Colonoscopy 05/06/2016 05/06/2011, 04/25, 05/06/2011 (Historical Completion) Cholesterol 03/05/2020 03/05/2015, 02/23, 03/15/2013, Additional history exists Mammogram 09/16/2020 09/16/2019 (Comp leted), 05/07/2015, 05/02/2014, Additional history exists COVID-19 Vaccine ( season) 2024 02/08/2021, 01/11/2021 Influenza Vaccine (#1) 2025 0, 08/09/2015, 08/24/2010, Additional history exists DTaP/Tdap/Td Vaccine (3 - Tdap) 03/18/2027 03/18/2017, 03/03/2007, 02/16/1997 RSV Vaccine (1 - 1-dose 75+ series) 2035 HepA Vaccine Aged Out No longer eligi ble based on patient's age to complete this topic HepB Vaccine Aged Out No longer eligi ble based on patient's age to complete this topic Hib Vaccine Aged Out No longer eligi ble based on patient's age to complete this topic IPV (Polio) Vaccine Aged Out No longe r eligible based on patient's age to complete this topic MCV4 Vaccine Aged Out No longer eligi ble based on patient's age to complete this topic Meningococcal B Vaccine Aged Out No l onger eligible based on patient's age to complete [...] this patient directly to arrange for followup. us Vernell Montejo MD RAD JIM Final Resul t * PAP TEST, ROUTINE (03/05/2015 8:42 AM CDT) Cytology, Pap (NOTE) Senior Lead Software Engineer Cytology Report Patient Name: ELISA SORIA Taken: 03/05/2015 Received: 03/05/2015 Reported: 03/08/2015 Physician(s): VERNELL MONTEJO ([id number]) Source of Specimen Pap Test, Routine Cervical/Endocer vical: Specimen Adequacy Satisfactory for evaluation. Atrophic specimen; endocervical component cannot be determined. Final Cytologic Interpretation/R esult EPITHELIAL CELL ABNORMALITIES Atypical squamous cells, undetermined significance (ASC-US). Electronicall y Signed Out By Nayely Brito MD ([id number] ) SABINE Saenz (ASCP) Pap Smear History Date of Last Menstrual Period: 11/09/2007 Microscopic Description Microscopic examination is performed. [facility] Department of Pathology [address] [place] [id number] [facility] 03/05/2015 8:42 AM CDT 03/05/2015 3:37 PM CDT Vernell Montejo MD LAB_1 Final Resul t [facility] [phone] * (ABNORMAL) LIPID PANEL AND DIRECT LDL(IF [...] AM CDT 03/05/2015 8:30 AM CDT Narrative [facility] - 03/05/2015 1:21 PM CDT Performed at [facility], [address] [place] [address] Vernell Montejo MD LAB_1 Final Resul t Performing Organization Address [facility] Co de Phone Number [facility] [phone] * COLONOSCOPY S (05/06/2011 12:00 AM CDT) 05/06/2011 Narrative [facility], Provider - 05/06/2011 12:00 AM CDT Niharika Castillo MD DUMMY/OTHER/AR Final Result from Last 3 Months or Most Recently Relevant to Health Maintenance Insurance F[employer] INS[employer]ED [employer] [facility] [employer] [employer]ED D[employer] Care Teams Pre Planning Advisor Relationship Specialty Start Date End Date Needs Pcp, [place] [address] PCP - General 07/18/22
--- OUTSIDE RECORDS SUMMARY | 2025-06-19 02:37 | XMS_ITS | Encounter Summary ---
Author Organization [employer] Address [address] [place] [address] Care Team Providers Care Pit Crane Operator Name Role Phone Needs Pcp, Assignment Primary Care Provider Encounter Details Date Type Department Care Team (Latest Contact Info) Description 01/08/1995 Orders Only Javi Bagley MD [address] [place], [place] [phone] Social History Tobacco Use Types Packs/Day Years [...] on filedocumented in this encounter Care Teams Pit Crane Operator Relationship Specialty Start Date End Date Needs Pcp, Ernie ORTIZ [place], [place] [address] PCP - General 07/18/22 documented as of this encounter
--- OUTSIDE RECORDS SUMMARY | 2025-06-19 02:37 | XMS_ITS | Encounter Summary ---
Author Organization [facility] Address [address] [place] [address] Care Team Providers Care Residential Construction Instructor Name Role Phone Needs Pcp, Assignment Primary Care Provider Encounter Details Date Type Department Care Team (Latest Contact Info) Description 12/03/1994 Orders Only Javi Bagley MD [address] [place], [place] [phone] Social History Tobacco Use Types Packs/Day Years [...] on filedocumented in this encounter Care Teams Residential Construction Instructor Relationship Specialty Start Date End Date Needs Pcp, Ernie ORTIZ [place], [place] [address] PCP - General 07/18/22 documented as of this encounter
--- OUTSIDE RECORDS SUMMARY | 2025-06-19 02:37 | XMS_ITS | Encounter Summary ---
Author Organization [facility] Address [address] [place] [address] Care Team Providers Care Makeup Editor Name Role Phone Needs Pcp, Assignment Primary Care Provider [phone] Encounter Details Date Type Department Care Team (Latest Contact Info) Description 05/28/1995 Orders Only Javi Bagley MD [address] [place], [place] [phone] Social History Tobacco Use Types Packs/Day Years [...] on filedocumented in this encounter Care Teams Makeup Editor Relationship Specialty Start Date End Date Needs Pcp, Ernie ORTIZ [place], [place] [address] PCP - General 07/18/22 documented as of this encounter
--- OUTSIDE RECORDS SUMMARY | 2025-06-19 02:37 | XMS_ITS | Encounter Summary ---
Author Organization [facility] Address [address] [place] [address] Care Team Providers Care Staffing Specialist Name Role Phone Needs Pcp, Assignment Primary Care Provider Encounter Details Date Type Department Care Team (Latest Contact Info) Description 12/24/1996 Orders Only Neftali Olivo MD [address] [place] [address] Social History Tobacco Use Types Packs/Day Years [...] on filedocumented in this encounter Care Teams Staffing Specialist Relationship Specialty Start Date End Date Needs Pcp, Ernie ORTIZ [place], [place] [address] PCP - General 07/18/22 documented as of this encounter
--- OUTSIDE RECORDS SUMMARY | 2025-06-19 02:37 | XMS_ITS | Encounter Summary ---
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
--- OUTSIDE RECORDS SUMMARY | 2025-06-19 02:37 | XMS_ITS | Encounter Summary ---
Author Organization [facility] Address [address] [place] [address] Care Team Providers Care Motion Picture Equipment Supervisor Name Role Phone Needs Pcp, Assignment Primary [...] on filedocumented in this encounter Care Teams Motion Picture Equipment Supervisor Relationship Specialty Start Date End Date Needs Pcp, Assignment [place], [place] [address] PCP - General 07/18/22 documented as of this encounter
--- OUTSIDE RECORDS SUMMARY | 2025-06-19 02:37 | XMS_ITS | Encounter Summary ---
Author Organization [employer] Address [address] [place] [address] Care Team Providers Care Zoning Assistant Name Role Phone Needs Pcp, Assignment Primary [...] on filedocumented in this encounter Care Teams Zoning Assistant Relationship Specialty Start Date End Date Needs Pcp, [place] [address] PCP - General 07/18/22 documented as of this encounter
--- OUTSIDE RECORDS SUMMARY | 2025-06-19 02:37 | XMS_ITS | Encounter Summary ---
Author Organization [facility] Address [address] [place] [address] Care Team Providers Care Site Worker Name Role Phone Needs Pcp, Assignment Primary [...] on filedocumented in this encounter Care Teams Site Worker Relationship Specialty Start Date End Date Needs Pcp, Assignment [place], [place] [address] PCP - General 07/18/22 documented as of this encounter
--- OUTSIDE RECORDS SUMMARY | 2025-06-19 02:37 | XMS_ITS | Encounter Summary ---
Author Organization [facility] Address [address] [place] [address] Care Team Providers Care Dress Designer Name Role Phone Needs Pcp, Assignment Primary [...] on filedocumented in this encounter Care Teams Dress Designer Relationship Specialty Start Date End Date Needs Pcp, Assignment [place], [place] [address] PCP - General 07/18/22 documented as of this encounter
--- OUTSIDE RECORDS SUMMARY | 2025-06-19 02:37 | XMS_ITS | Encounter Summary ---
Author Organization [facility] Address [address] [place] [address] Care Team Providers Care Product Safety Administrator Name Role Phone Needs Pcp, Assignment Primary Care Provider Encounter Details Date Type Department Care Team (Latest Contact Info) Description 04/30/1995 Orders Only Javi Bagley MD [address] [place], [place] [phone] Social History Tobacco Use Types Packs/Day Years [...] on filedocumented in this encounter Care Teams Product Safety Administrator Relationship Specialty Start Date End Date Needs Pcp, Ernie ORTIZ [place], [place] [address] PCP - General 07/18/22 documented as of this encounter
--- OUTSIDE RECORDS SUMMARY | 2025-06-19 02:37 | XMS_ITS | Encounter Summary ---
Author Organization [facility] [employer] [employer] Address [address] [place] [address] Care Team Providers Care Dealer Relationship Manager Name Role Phone Needs Pcp, Assignment Primary Care Provider [phone] Encounter Details Date Type Department Care Team (Latest Contact Info) Description 11/14/1994 Orders Only Javi Bagley MD [address] [place], [place] [phone] Social History Tobacco Use Types Packs/Day Years [...] on filedocumented in this encounter Care Teams Dealer Relationship Manager Relationship Specialty Start Date End Date Needs Pcp, Ernie ORTIZ [place], [place] [address] PCP - General 07/18/22 documented as of this encounter
--- OUTSIDE RECORDS SUMMARY | 2025-06-19 02:37 | XMS_ITS | Encounter Summary ---
Author Organization [facility] Address [address] [place] [address] Care Team Providers Care Acute Care Clinical Nurse Specialist Name Role Phone Needs Pcp, Assignment [...] on filedocumented in this encounter Care Teams Acute Care Clinical Nurse Specialist Relationship Specialty Start Date End Date Needs Pcp, [place] [address] PCP - General 07/18/22 documented as of this encounter
--- OUTSIDE RECORDS SUMMARY | 2025-06-19 02:37 | XMS_ITS | Encounter Summary ---
Author Organization [facility] Address [address] [place] [address] Care Team Providers Care It Recruiter Name Role Phone Needs Pcp, Ernie Primary Care Provider Encounter Details Date Type Department Care Team (Latest Contact Info) Description 01/14/1996 Orders Only Larry West MD [address] [place], [place] [address] Social History Tobacco Use Types Packs/Day Years [...] on filedocumented in this encounter Care Teams It Recruiter Relationship Specialty Start Date End Date Needs Pcp, Ernie ORTIZ [place], [place] [address] PCP - General 07/18/22 documented as of this encounter
--- OUTSIDE RECORDS SUMMARY | 2025-06-19 02:37 | XMS_ITS | Encounter Summary ---
Author Organization [employer] Address [address] [place] [address] Care Team Providers Care Deployment Specialist Name Role Phone Needs Pcp, Assignment Primary Care Provider Encounter Details Date Type Department Care Team (Latest Contact Info) Description 01/27/1996 Orders Only Janett Guzman MD [address] [facility] [address] [place], [place] [address] Social History Tobacco Use Types Packs/Day Years [...] on filedocumented in this encounter Care Teams Deployment Specialist Relationship Specialty Start Date End Date Needs Pcp, [place] [address] PCP - General 07/18/22 documented as of this encounter
--- OUTSIDE RECORDS SUMMARY | 2025-06-19 02:37 | XMS_ITS | Clinical Summary ---
Author Organization [employer] [facility] Address [address] [place] [address] Care Team Providers Care Client Representative Name Role Phone Pcp, No Primary Care Provider Unavailabl e Allergies Active Allergy Reactions Criticality Noted Date Comments Chlorpheniramine-Phenylpropan Hives 2016 Eyes itch Medications lisinopril (PRINIVIL; ZESTRIL) 10 mg tablet Take 1 tablet by mouth once daily. 0 07/08/2017 Active Social History Tobacco Use Types Packs/Day Years Used Date Smoking Tobacco: Never Smokeless Tobacco: Never Comments Unknown Sex and Gender Information Value Date Recorded Sex Assigned at Not on file Legal Sex Female 9:03 AM CDT Gender Identity Not on file [...] Health Maintenance Due Date Last Done Comments Tetanus booster 1971 Depression screening for age 12+ 1972 HIV for age 15-65 1975 BMI (ht and wt on same day) for age 18+ 1978 Hepatitis C screening for age 18-79 1978 Colonoscopy through age 75 2005 Lipids for age 45-75 2005 Mammogram for age 45-75 2005 Pneumococcal series for age 50+ (1 of 1 - PCV) 2010 Zoster (shingles) series for age 50+ (1 of 2) 2010 COVID-19 vaccine series (2023-25 season) 2024 Influenza Vaccine (#1) 2025 Pap test for age 21-65 04/23/2026 , 04/23/2023, 03/12/2018, Additional history exists RSV vaccine for adults or (1 - 1-dose 75+ series) 2035 Hepatitis B series for 19+ Aged Out N o longer eligible based on patient's age to complete this topic Procedures Procedure Name Priority Date/Time Associated Diagnosis Comments HPV HIGH RISK Routine 04/23/2023 7:55 AM CDT from Last 3 Months or Most Recently Relevant to Health Maintenance Results * HPV HIGH RISK (04/23/2023 7:55 AM CDT) TYPE 16 Negative Negative 04/30/2023 5:17 PM CDT [facility] TYPE 18 Negative Negative 04/30/2023 5:17 PM CDT [facility] OTHER HIGH RISK TYPES Negative Negative 04/30/2023 5:17 PM CDT [facility] Other (Cervical/Vagina l) 04/23/2023 7:55 AM CDT 04/27/2023 12:00 PM CDT Narrative [facility] - 04/30/2023 5:17 PM CDT HPV types 16, 18, 31, 33, 35, 39, 45, 51, 52, 56, 58, 59, 66 and 68 DNA were undetectable or below the pre-set threshold. Methodology: Cornelia Jaiden 4800 HPV Test us Sola Allen MD MICROBIOLOGY Final Re sult [facility] [address] [place] [address], [place] from Last 3 Months or Most Recently Relevant to Health Maintenance Insurance [employer] [id number] Care Teams Client Representative Relationship Specialty Start Date End Date Pcp, No . PCP - General 06/30/17
--- OUTSIDE RECORDS SUMMARY | 2025-06-19 02:37 | XMS_ITS | Encounter Summary ---
Author Organization [employer] Address [address] [place] [address] Care Team Providers Care Scanning Tech Name Role Phone Needs Pcp, Ernie Primary Care Provider Encounter Details Date Type Department Care Team (Latest Contact Info) Description 06/26/1998 [place] [address] [place], [place] [phone] Social History Tobacco Use Types Packs/Day Years [...] on filedocumented in this encounter Care Teams Scanning Tech Relationship Specialty Start Date End Date Needs Pcp, Ernie ORTIZ [place], [place] [phone] PCP - General 07/18/22 documented as of this encounter
--- OUTSIDE RECORDS SUMMARY | 2025-06-19 02:37 | XMS_ITS | Encounter Summary ---
Author Organization [facility] Address [address] [place] [address] Care Team Providers Care Directory Carrier Name Role Phone Needs Pcp, Assignment Primary [...] on filedocumented in this encounter Care Teams Directory Carrier Relationship Specialty Start Date End Date Needs Pcp, Assignment [place], [place] [address] PCP - General 07/18/22 documented as of this encounter
--- OUTSIDE RECORDS SUMMARY | 2025-06-19 02:37 | XMS_ITS | Encounter Summary ---
Author Organization [employer] Address [address] [place] [address] Care Team Providers Care Lab Rep Name Role Phone Needs Pcp, Assignment Primary [...] on filedocumented in this encounter Care Teams Lab Rep Relationship Specialty Start Date End Date Needs Pcp, Ernie [place], [place] [phone] PCP - General 07/18/22 documented as of this encounter
[2025-06-19 02:41] VITALS: BP 165/74; PULSE 89; RESP 18; TEMP 36.7; O2SAT 98; BMI 31.0
[2025-06-19 02:55] VITALS: BP 154/68; PULSE 84; RESP 18; TEMP 36.7; O2SAT 98
--- NOTE | 2025-06-19 02:56 | ED.SOB ---
HPI - SOB/Dyspnea General Date Seen: 06/19/25 Chief Complaint: Unspecified Complaint, Adult Stated Complaint: difficulty breathing, congestion Time Seen by Provider: 06/19/25 02:47 Source: patient, family, RN notes reviewed and old records reviewed Mode of arrival: ambulatory Limitations: no limitations History of Present Illness HPI Narrative: This delightful 64-year-old female presents here with her for shortness of breath pressure in the face and ear discomfort, this is been going on for the last few days, saw provider yesterday and was placed on amoxicillin, told to take Tylenol too. Says she was shortness of breath on the way over, but admits to me she thinks it probably was more discharge down her throat from her nose. Her ears are killing her and she can hear that well out of her ears, no history of fevers chills denies leg swelling no chest pain pressure associated with this she has no past history of PEs or other issues, she does not feel like she is struggling to breathe. She did use her inhaler at home a she has exercise-induced asthma, before she came in. MD elicited complaint: shortness of breath Pertinent past history: asthma Onset (ago): day(s) Context: recent illness Severity: moderate Known history of: asthma Treatment prior to arrival: none Related Data Home oxygen amount: none Home Medications ?Medication ?Instructions ?Recorded ?Confirmed loratadine 10 mg tablet 10 mg PO QDAY 05/20/22 06/19/25 Previous Rx's ?Medication ?Instructions ?Recorded albuterol sulfate 90 mcg/actuation 2 puff inhalation Q4-6H PRN 05/16/25 aerosol inhaler (Ventolin HFA) shortness of breath or wheezing #8.5 grams lisinopril 10 1 tab PO QDAY #90 tabs 05/16/25 mg-hydrochlorothiazide 12.5 mg tablet rosuvastatin 5 mg tablet 5 mg PO QDAY #90 tabs 05/16/25 amoxicillin 875 mg tablet 875 mg PO BID 7 days #14 tabs 06/17/25 Allergies Allergy/AdvReac Type Severity Reaction Status Date / Time No Known Drug Allergies Allergy Verified 06/19/25 02:44 Review of Systems Status of ROS: Reports: 10 or more systems reviewed and unremarkable except as noted in History and below [facility] Medical History Fasting hyperglycemia ?R73.01 - Impaired fasting glucose (ICD-10) Prediabetes (05/10/24) ?R73.03 - Prediabetes (ICD-10) High density lipoprotein (HDL) less than 40 mg/dL ?E78.6 - Lipoprotein deficiency (ICD-10) Hypertension ?I10 - Essential (primary) hypertension (ICD-10) Dyslipidemia ?E78.5 - Hyperlipidemia, unspecified (ICD-10) Adenomatous colon polyp ?D12.6 - Benign neoplasm of colon, unspecified (ICD-10) DJD (degenerative joint disease) of knee ?M17.10 - Unilateral primary osteoarthritis, unspecified knee (ICD-10) Bronchospasm ?J98.01 - Acute bronchospasm (ICD-10) Osteoarthritis ?M19.90 - Unspecified osteoarthritis, unspecified site (ICD-10) Viral infection of left eye ?H44.002 - Unspecified purulent endophthalmitis, left eye (ICD-10) ?B97.89 - Other viral agents as the cause of diseases classified elsewhere (ICD-10) Cellulitis ?L03.90 - Cellulitis, unspecified (ICD-10) Surgical History History of ectopic ?Z87.59 - Personal history of other complications of , childbirth and the puerperium (ICD-10) Status post tubal ligation ?Z98.51 - Tubal ligation status (ICD-10) Status post tonsillectomy ?Z90.89 - Acquired absence of other organs (ICD-10) Family History Sister Breast cancer, Onset Age: 52 Grandfather Myocardial infarction, Onset Age: 70 Grandmother Myocardial infarction Uncle Myocardial infarction Brother Myocardial infarction, Onset Age: 65 Maternal Grandfather Stroke Mother Colon cancer, Onset Age: 71 Social History Narrative: , 3 adult children, retired [employer] Non-smoker Rarely consumes alcohol Walking daily 45min What is your current living situation?: I presently have a place to live Problems where you live: no known problems In the past 12 months, utilities in danger of being shut off: no In past 12 months, lack of transportation kept you from medical appts, meetings, work, or getting things needed for daily living: no In the past 12 mos, have been you worried that your food would run out before you had money to buy more?: never true In the past 12 mos, the food you bought just didn't last and you didn't have money to buy more?: never true Smoking Status: Never smoker Second hand tobacco smoke exposure: No How often do you have a drink containing alcohol: never AUDIT-C Alcohol total score: 0 Non-prescribed substance use: denies use How often does anyone, including family, friends and others, physically hurt you: never How often does anyone, including family, friends and others, insult or talk down to you: never How often does anyone, including family, friends and others, threaten you with harm: never How often does anyone, including family, friends and others, scream or curse at you: never Exam Narrative: Exam Narrative: On examination nontoxic speaking to me in full sentences, vital signs are all listed in entirely normal. Her pupils are equal round reactive to light, she has bilateral otitis media. Nasal mucosa is engorged bilaterally with some mild pressure over face, oropharynx is otherwise normal, she is easy respirations there is no wheezing at all, no splinting, no crackles, or any signs respiratory distress her heart sounds are normal her abdomen is soft and slightly obese there is no guarding on palpation. Lower extremities reveal no evidence of any pitting edema swelling negative Homans sign. Const: Vital Signs, click to edit/add: Vital Signs - 24 hr 06/19/25 02:41 06/19/25 02:55 Temperature 98.0 F 98.0 F Pulse Rate [Right Pulse Oximeter] 89 84 Respiratory Rate 18 18 Blood Pressure [Ri ght Upper Arm] 165/74 H 154/68 H Pulse Oximetry 98 98 Oxygen Delivery Me thod Room Air Room Air Course Vital Signs Vital signs: Initial Vital Signs Respiratory Effort Normal, Spontaneous, Non-Labored 06/19/25 02:36 Respiratory Depth Normal 06/19/25 02:36 Respiratory Pattern Normal 06/19/25 02:36 Vital Signs Temperature 98.0 F 06/19/25 02:41 Pulse Rate 89 06/19/25 02:41 Respiratory Rate 18 06/19/25 02:41 Blood Pressure 165/74 H 06/19/25 02:41 Pulse Oximetry 98 06/19/25 02:41 Oxygen Delivery Method Room Air 06/19/25 02:41 Temperature 98.0 F 06/19/25 02:55 Pulse Rate 84 06/19/25 02:55 Respiratory Rate 18 06/19/25 02:55 Blood Pressure 154/68 H 06/19/25 02:55 Pulse Oximetry 98 06/19/25 02:55 Oxygen Delivery Method Room Air 06/19/25 02:55 MDM - SOB/Dyspnea MDM Narrative Medical decision making narrative: Life-threatening differential diagnosis includes occluded COPD exacerbation, pulmonary edema, acute coronary syndromes, pulmonary embolism, pneumonia, and pneumothorax. Other differential diagnosis considerations include asthma, bronchitis as well as other etiologies. I discussed with her that she does not have any signs of a pulmonary embolism, she is clearly not short of breath with a great oxygen saturation. I do think that it be reasonable to add in some prednisone for the fact is that her decrease some of the inflammation in her face, I do think we need to give the amoxicillin try here on the ears. I do not see any evidence of a cardiac issue, she is in agreement Medical Records Attestation: I reviewed the patient's medical records. Discharge Plan Discharge Clinical Impression: Acute otitis media, bilateral, Sinusitis, acute, Shortness of breath Patient Disposition: Home w/ Parent or Adult Condition: Stable Additional Instructions: Home rest continue with the amoxicillin it is a great antibiotic and we get a let it do it is work, I do believe with the red eyes this likely is viral and I am not sure the antibiotics are going to do any good at all but I would take them for sure. Prednisone is going to help open things up, both in your nose and your years. Tylenol is going to help with the discomfort going to do nothing for information. Return here if symptoms change or worsen. Just know that the prednisone will probably keep you up at night. Activity Level: Light activity Prescriptions: No Action lisinopril-hydrochlorothiazide 10-12.5 mg tablet 1 tab PO QDAY Qty: 90 3RF rosuvastatin 5 mg tablet 5 mg PO QDAY Qty: 90 0RF albuterol sulfate [Ventolin HFA] 90 mcg/actuation HFA aerosol inhaler 2 puff inhalation Q4-6H PRN (Reason: shortness of breath or wheezing) Qty: 8.5 0RF loratadine 10 mg tablet 10 mg PO QDAY amoxicillin 875 mg tablet 875 mg PO BID 7 Days Qty: 14 0RF Follow Up/Referrals: Sola Allen MD [Primary Care Provider, Family Practice] Stand Alone Forms: [facility] Info Instructions
[2025-06-19 03:00] VITALS: BP 154/68; PULSE 84; RESP 18; TEMP 36.7
== END 2025-06-19 03:00 | disposition home or self-care (01) ==
LOC: ED 02:57
PROVIDERS: Emergency Provider Family Medicine; PCP Family Medicine
DX: R06.02 Shortness of breath (principal); H66.93 Otitis media, unspecified, bilateral; J01.90 Acute sinusitis, unspecified
CPT/HCPCS: 99283

== ENCOUNTER 2025-08-14 08:00 | Outpatient (CLI) | payer OTHER, SELFPAY | END 2025-08-14 08:01 | disposition home or self-care (01) | LOC: NFLDREF 08-16 09:20 | PROVIDERS: PCP Family Medicine; Referring Provider Family Medicine; Visit Provider Family Medicine | DX: E78.5 Hyperlipidemia, unspecified (principal) | CPT/HCPCS: 80053; 80061 ==